=== PATIENT | male | born 1975 | race Caucasian/White ===

== ENCOUNTER 2019-08-18 13:02 | Emergency (ER) | payer OTHER, SELFPAY ==
[2019-08-18 13:07] VITALS: BP 138/85; PULSE 90; RESP 16; TEMP 37.1; O2SAT 98
--- NOTE | 2019-08-18 13:27 | ED.SKABFB ---
HPI - Skin/Abscess/Foreign Bdy General Chief complaint: Skin/Abscess/Foreign Body Stated complaint: rash on body Time Seen by Provider: 08/18/19 13:23 Source: patient Mode of arrival: ambulatory Limitations: no limitations History of Present Illness HPI narrative: A 44 y/o male pt presents to the ED, with c/o a rash to his back, ABD, and upper and lower extremities that began last (5 days ago). Pt states that the rash originally started on his back and has spread to his ABD and upper and lower extremities. He reports that the rash is itchy and painful. Pt notes having a fever of 101.7F last night, but denies taking any medications and states that the fever was gone when he woke up. Pt reports chills, but denies sore throat or rhinorrhea. He states that cold therapy helps his itching and pain and denies any changes in his diet or environment that may have caused the rash. Pt denies taking any Benedryl and denies having any contacts with a similar rash. He reports taking Lisinopril and notes a PMHx of Plaque psoriasis. Pt notes an allergy to Valsartan. complaint: rash Onset (ago): day(s) Location: generalized (back, ABD, upper and lower extremities) Quality: pruritic Pain Consistency: constant Relieving factors: cold therapy Associated symptoms: fever (101.7 last night, now resolved) and chills (now resolved) Related Data Allergies Allergy/AdvReac Type Severity Reaction Status Date / Time valsartan AdvReac Mild facial Verified 08/18/19 13:12 flushing, visual changes Review of Systems Review of Systems: All systems reviewed & are unremarkable except as noted in HPI and below Constitutional: Constitutional: Reports chills (now resolved) and Reports fever(s) (101.7F last night, now resolved) ENT: Denies sore throat and Denies other (rhinorrhea) Integumentary/Breasts: Skin/Breast: Reports pruritus (to rash) and Reports rash (back, ABD, upper and lower extremities) PMFSH Past Medical History Medical History (Updated 08/18/19 @ 15:20 by Caitlyn Frey MD) Essential (primary) hypertension IFG (impaired fasting glucose) Mixed hyperlipidemia Plaque psoriasis Surgical History Surgical History Status post vasectomy Social History Social History Smoking packs per day: 0.5 Smoking cigarettes per day: 10.0 Years smoked: 6 Smoking pack-years: 3.00 Smoking status: Former smoker Tobacco type: cigarettes Second hand tobacco smoke exposure: No Smoking end date: 05/13/97 Alcohol intake: never Substance use: never Substance use type: does not use Gender identity (if verbalized by the patient): Male Exam Narrative: Exam Narrative: GENERAL: Well-appearing, well-nourished, and in no acute distress. HEAD: Normocephalic, atraumatic EYES: PERRLA and EOMI, conjunctiva clear without discharge THROAT:Mucous membranes moist, Oropharynx normal without erythema, exudate, peritonsillar swelling or fluctuance NECK: Supple, without lymphadenopathy or mass RESPIRATORY: No respiratory distress, Airway patent, Respirations non-labored, Clear to auscultation without rales, rhonchi or wheeze HEART: Regular rate and rhythm. No murmur heard. Normal peripheral pulses. ABDOMEN: Soft, nontender, nondistended, normal active bowel sounds. No masses. No rebound or guarding, No organomegaly. EXTREMITIES: No edema, normal strength with full range of motion. NEURO: Alert and oriented x3. CN 2-12 grossly intact. No focal deficits. PSYCH: Normal mood and affect. Skin: Rashes: rashes noted (rash to back, abdomen and extremities; palm sparing, blanching, macuopapula) and other (erythema) Course Course Emergency Course: Patient presents with rash . He states he had fever last night that resolved spontaneously and he is afebrile here. I discussed with patient that rash likely viral rash juan alberto
[2019-08-18] MEDS: methylPREDNISolone SOD SUCC 125 MG VIAL IV PUSH (13:44)
[2019-08-18] MEDS: FAMOTIDINE 20 MG/2 ML VIAL IV PUSH (13:44)
[2019-08-18 13:54] VITALS: BP 121/73; PULSE 79; RESP 19; O2SAT 99
[2019-08-18 15:32] VITALS: BP 118/75; PULSE 78; RESP 16; O2SAT 100
== END 2019-08-18 15:33 | disposition home or self-care (01) ==
PROVIDERS: Emergency Provider General Practice; PCP Family Medicine
DX: R21 Rash and other nonspecific skin eruption (principal); F17.210 Nicotine dependence, cigarettes, uncomplicated; I10 Essential (primary) hypertension; E78.2 Mixed hyperlipidemia; L40.0 Psoriasis vulgaris
CPT/HCPCS: 87081; 87880; 96374; 96375; 99284; J1200; J2930

== ENCOUNTER 2019-08-26 08:54 | Outpatient (CLI) | payer OTHER, SELFPAY ==
[2019-08-24 15:40] LABS: Basophils Absolute Auto 0.1 K/mm3 (0.0-0.1); Basophils Percent Auto 1.2 % (0.2-1.2); Eosinophils Absolute Auto 0.4 K/mm3 (0-0.3); Eosinophils Percent Auto 6.5 % (0-4.4); Hematocrit 39.3 % (42.0-52.0); Hemoglobin 13.7 g/dL (14.0-18.0); Lymphocytes Absolute Auto 1.52 K/mm3 (0.9-3.2); Lymphocytes Percent Auto 23.1 % (18.3-44.2); Mean Corpuscular HGB Conc 34.9 g/dl (32-36); Mean Corpuscular Hemoglobin 31.8 pg (26-34); Mean Corpuscular Volume 91.2 fl (80-100); Mean Platelet Volume 8.3 fl (7.4-10.4); Monocytes Absolute Auto 0.8 K/mm3 (0.1-0.6); Neutrophils Absolute Auto 3.6 K/mm3 (1.3-6.7); Neutrophils Percent Auto 54.2 % (45.5-73.1); Platelet Count Result 299 k/mm3 (150-375); Red Blood Count 4.31 M/mm3 (4.6-6.20); Red Cell Distribution Width 12.5 % (11.5-14.5); White Blood Count 6.6 K/mm3 (4.5-10.0)
[2019-08-24 15:57] LABS: Alanine Aminotransferase 54 U/L (4-50); Albumin Level 4.2 g/dL (3.5-5.1); Alkaline Phosphatase 92 U/L (38-126); Aspartate Amino Transferase 59 U/L (17-59); Bilirubin,Total 0.4 mg/dL (0.2-1.3); Blood Urea Nitrogen 18 mg/dL (9-20); Carbon Dioxide 27 mmol/L (22-30); Chloride 104 mmol/L (98-107); Estimated Glomerular Filt Rate > 60; Glucose 133 mg/dL (75-110); Potassium 3.8 mmol/L (3.4-5.0); Sodium 140 mmol/L (137-145)
[2019-08-24 15:59] LABS: Rheumatoid Factor < 8.6 IU/ML (<12)
[2019-08-24 19:08] LABS: Hepatitis B Surface Antigen Negative (Negative)
[2019-08-24 19:13] LABS: HAV RESULT Negative (Negative); Hepatitis B Core IgM Result Negative (Negative)
[2019-08-24 19:25] LABS: Hepatitis C Virus Antibody Negative (Negative)
[2019-08-28 14:15] LABS: EBV Nuclear Ab Antibody >600.00 U/mL (<18.00); EBV Nuclear Ab Interpretation Past; EBV Virus Capsid Ag IgM Ab <36.00 U/mL (<36.00)
== END 2019-08-26 08:55 | disposition home or self-care (01) ==
PROVIDERS: PCP Family Medicine; Visit Provider Physician Assistant
DX: R21 Rash and other nonspecific skin eruption (principal); R50.9 Fever, unspecified; M25.50 Pain in unspecified joint; K74.60 Unspecified cirrhosis of liver
CPT/HCPCS: 36415; 80053; 80074; 85025; 86038; 86060; 86430; 86664; 86665

== ENCOUNTER 2020-01-21 08:05 | Emergency (ER) | payer OTHER, SELFPAY ==
[2020-01-21 08:12] VITALS: BP 150/87; PULSE 78; RESP 16; TEMP 36.9; O2SAT 98
--- NOTE | 2020-01-21 08:30 | ED.WOUNDLAC ---
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 Patient denies any pain. Denies active bleeding. He is not up-to-date on his tetanus. No difficulty or pain with movement. He denies any numbness. Patient states he was sent here for medical clearance by his employer. Patient is right-hand dominant. Related Data Allergies Allergy/AdvReac Type Severity Reaction Status Date / Time valsartan AdvReac Severe facial Verified 01/21/20 08:17 flushing, visual changes Review of Systems Review of Systems: Narrative: CONSTITUTIONAL: Denies fever CARDIOVASCULAR: Denies chest pain RESPIRATORY: Denies cough or dyspnea. GASTROINTESTINAL: Denies abdominal pain SKIN: Denies rash, reports laceration to left thumb MUSCULOSKELETAL: Denies back pain NEUROLOGIC: Denies headache PMFSH Past Medical History Medical History Essential (primary) hypertension Fever IFG (impaired fasting glucose) Joint pain Joint swelling Mixed hyperlipidemia Plaque psoriasis Rash Surgical History Surgical History Status post vasectomy Social History Social History Smoking packs per day: 0.5 Smoking cigarettes per day: 10.0 Years smoked: 6 Smoking pack-years: 3.00 Smoking status: Former smoker Tobacco type: cigarettes Second hand tobacco smoke exposure: No Smoking end date: 05/13/97 Alcohol intake: never Substance use: never Substance use type: does not use Gender identity (if verbalized by the patient): Male Exam Narrative: Exam Narrative: GENERAL: Awake, alert, conversant HEAD: Normocephalic, atraumatic. EYES: PERRLA and EOMI. ENT: Nares clear, no rhinorrhea or epistaxis. Mucous membranes moist. NECK: Supple. CHEST: No respiratory distress, breathing even and non labored HEART: Regular rate, sinus rhythm ABDOMEN:Non distended, non tender EXTREMITIES: Normal range of motion. No edema. SKIN: Warm, dry, no rash. 1 cm superficial laceration to the anterior aspect of the right thumb, not overlying the PIP or DIP. Capillary refill less than 3 seconds. Radial pulse 2+. Intact sensation, median, ulnar, radial nerve distribution. No pain with palpation of the DIP or PIP. No gross deformity. NEURO:No focal deficits. Alert and oriented x3 Course Vital Signs Vital signs: Vital Signs Temperature 36.9 C 01/21/20 08:12 Pulse Rate 78 01/21/20 08:12 Respiratory Rate 16 01/21/20 08:12 Blood Pressure 150/87 H 01/21/20 08:12 Pulse Oximetry 98 01/21/20 08:12 Temperature 36.9 C 01/21/20 08:12 Pulse Rate 78 01/21/20 08:12 Respiratory Rate 16 01/21/20 08:12 Blood Pressure 150/87 H 01/21/20 08:12 Pulse Oximetry 98 01/21/20 08:12 Procedures Laceration Laceration 1: Date: 01/21/20 Time: 08:33 Site: hand (left thumb) Side (If applicable): left Size (cm): 1 Description: linear Depth: simple, single layer Pre-repair: wound explored and irrigated ====== Skin Level ====== Skin layer closed with: dermabond ====== Subcutaneous Layer ====== ====== Muscle Layer ====== ====== Tendon Layer ====== MDM - Wound/Laceration MDM Narrative Medical decision making narrative: Patient with a superficial left thumb wound. No active bleeding. No gaping tissue. I do not even feel that this would benefit from sutures given how superficial it is. We can place some Dermabond for the patient. His te
[2020-01-21] MEDS: TETANUS,DIPHTHERIA,AC PERTUSSIS ADULT (0.5 ML) BOOSTRIX IM (08:47)
[2020-01-21 09:20] VITALS: BP 122/76; PULSE 78; RESP 17; O2SAT 98
== END 2020-01-21 09:21 | disposition home or self-care (01) ==
PROVIDERS: Emergency Provider Emergency Medicine; PCP Family Medicine
DX: S61.012A Laceration without foreign body of left thumb without damage to nail, initial encounter (principal); I10 Essential (primary) hypertension; E78.2 Mixed hyperlipidemia; Z87.891 Personal history of nicotine dependence; Z23 Encounter for immunization; W27.0XXA Contact with workbench tool, initial encounter
CPT/HCPCS: 12001; 90471; 90715; 99282

== ENCOUNTER 2022-04-21 16:17 | Emergency (ER) | payer OTHER, SELFPAY ==
[2022-04-21 17:03] VITALS: BP 144/86; PULSE 70; RESP 16; TEMP 36.9; O2SAT 98
[2022-04-21 17:16] VITALS: BP 144/86; PULSE 70; RESP 16; TEMP 36.9; O2SAT 98
--- NOTE | 2022-04-21 18:52 | ED.UPPEXIN ---
HPI - Extremity Injury (Upper) General Chief Complaint: Extremity Injury, Upper Stated Complaint: Right Shoulder Pain Time Seen by Provider: 04/21/22 18:52 Source: patient, RN notes reviewed and old records reviewed Mode of arrival: ambulatory Limitations: no limitations History of Present Illness HPI narrative: 46 year old male accompanied by spouse with complaints of right scapular pain radiating to right shoulder and neck and right clavicle area with increased pain with deep breathing starting today, Patient denies any known injury. Patient denies any recent cough or cold symptoms, no fevers, chills or sweats. Patient reports that he has had COVID vaccinations but no flu shot.Strong pulses to his right arm, no obvious deformity noted, states increased pain with movement, ROM intact. MD complaint: injury to: right Onset (ago): hour(s) (started today) Treatments prior to arrival: other (none) Related Data Allergies Allergy/AdvReac Type Severity Reaction Status Date / Time valsartan AdvReac Severe facial Verified 04/21/22 17:15 flushing, visual changes Review of Systems Review of Systems: CONSTITUTIONAL: Denies fever, chills, or sweats. EYES: Denies visual changes, redness, or discharge. ENT: Denies rhinorrhea, congestion, sore throat, or otalgia. CARDIOVASCULAR: Denies chest pain, palpitations, or edema. RESPIRATORY: Denies cough or dyspnea. GASTROINTESTINAL: Denies abdominal pain, nausea, vomiting, or diarrhea. GENITOURINARY: Denies dysuria or hematuria. SKIN: Denies rash or itching. MUSCULOSKELETAL: Denies back pain, positive for right scapula pain radiating to right shoulder neck and right clavicle area, or myalgia. NEUROLOGIC: Denies headache, numbness, or weakness. PSYCHIATRIC: Denies anxiety or depression. All systems reviewed & are unremarkable except as noted in HPI and below PMFSH Past Medical History Medical History (Updated 04/22/22 @ 00:00 by Pj Jeronimo) Essential (primary) hypertension Fever IFG (impaired fasting glucose) Joint pain Joint swelling Mixed hyperlipidemia Plaque psoriasis Rash Surgical History Surgical History Status post vasectomy Family History Family History Mother Diabetes mellitus Cerebrovascular accident Social History Social History Smoking packs per day: 0.5 Smoking cigarettes per day: 10.0 Years smoked: 6 Smoking pack-years: 3.00 Smoking status: Former smoker Tobacco type: cigarettes Second hand tobacco smoke exposure: No Smoking end date: 05/13/97 Alcohol intake: former Alcohol use details: Stopped a year ago due to B/P. Substance use: never Substance use type: does not use Gender identity (if verbalized by the patient): Male Comments At time of signature, agree with nursing past medical, surgical, social and family history. There is no relevant family history pertinent to the presenting complaint Exam Narrative: GENERAL: Well-appearing, well-nourished, and in no acute distress. HEAD: Normocephalic, atraumatic. EYES: PERRLA and EOMI. ENT: Nares clear, no rhinorrhea or epistaxis. Mucous membranes moist. NECK: Supple.no lymphadenopathy some right sided neck pain CHEST: Clear to auscultation. No respiratory distress.SAO2 98% on room air reports increased pain with deep inspiration HEART: Regular rate and rhythm. No murmur heard. Normal peripheral pulses. ABDOMEN: Soft, nontender, nondistended, normal active bowel sounds. EXTREMITIES: Normal range of motion. No edema. SKIN: Warm, dry, no rash. NEURO: No focal deficits. Alert and oriented x3. Course Course Emergency Course: Patient is aware of diagnosis, understands and agrees to treatment plan.? Anticipatory guidance given.? Patient agrees to follow-up as directed and is aware of reasons to seek care at the emerg
== END 2022-04-21 19:10 | disposition home or self-care (01) ==
PROVIDERS: Emergency Provider Registered Nurse; PCP Family Medicine
DX: M25.511 Pain in right shoulder (principal); Z87.891 Personal history of nicotine dependence; I10 Essential (primary) hypertension; R73.02 Impaired glucose tolerance (oral); E78.2 Mixed hyperlipidemia; L40.0 Psoriasis vulgaris
CPT/HCPCS: 99213; G0463

== ENCOUNTER 2022-05-18 04:35 | Emergency (ER) | payer OTHER, SELFPAY ==
--- NOTE | ~2022-05-18 | XR_ITS ---
Right Shoulder Technique: AP and scapular Y views were obtained. Clinical History: Pain Findings: No fracture or dislocation is seen. Osseous alignment is anatomic. The glenohumeral and acr omioclavicular joint spaces are preserved. Soft tissues are unremarkable. Impression: Unremarkable right shoulder radiographs. Reviewed, dictated and finalized at [facility]. [employer] ACCOUNT REPRESENTATIVE Impression: Unremarkable right shoulder radiographs.
[2022-05-18 04:39] VITALS: BP 140/91; PULSE 74; RESP 20; TEMP 36.6; O2SAT 99
--- NOTE | 2022-05-18 05:53 | ED.UPPEXIN ---
HPI - Extremity Injury (Upper) General Chief Complaint: Extremity Injury, Upper Stated Complaint: shoulder pain Time Seen by Provider: 05/18/22 05:24 History of Present Illness HPI narrative: This is a 47-year-old male with past medical history of hypertension, who presents to the emergency department complaining of right arm and back pain. The patient states he was seen previously at an outside facility for scapular pain but was not sure of his diagnosis. Today he states while taking his medications, he had sharp mid back pain radiating to the right arm. He rated the pain initially a 6 out of 10 and is now 4 out of 10 after taking ibuprofen. The pain is worse with movement of the arm. He denies trauma, nausea, vomiting or difficulty breathing. Related Data Allergies Allergy/AdvReac Type Severity Reaction Status Date / Time valsartan AdvReac Severe facial Verified 04/21/22 17:15 flushing, visual changes Review of Systems Review of Systems: CONSTITUTIONAL: Denies fever, chills, or sweats. CARDIOVASCULAR: Denies chest pain, palpitations, or edema. RESPIRATORY: Denies cough or dyspnea. GASTROINTESTINAL: Denies abdominal pain, nausea, vomiting, or diarrhea. GENITOURINARY: Denies dysuria or hematuria. SKIN: Denies rash or itching. MUSCULOSKELETAL: Right shoulder and arm pain, denies back pain, or myalgia. NEUROLOGIC: Denies headache, numbness, dizziness, or weakness. PSYCHIATRIC: Denies anxiety or depression. REPLACED BY [facility] Past Medical History Medical History (Updated 05/18/22 @ 06:35 by Flynn Ellis MD) Essential (primary) hypertension Fever IFG (impaired fasting glucose) Joint pain Joint swelling Mixed hyperlipidemia Plaque psoriasis Rash Surgical History Surgical History Status post vasectomy Family History Family History Mother Diabetes mellitus Cerebrovascular accident Social History Social History Smoking packs per day: 0.5 Smoking cigarettes per day: 10.0 Years smoked: 6 Smoking pack-years: 3.00 Smoking status: Former smoker Tobacco type: cigarettes Second hand tobacco smoke exposure: No Smoking end date: 05/13/97 Alcohol intake: former Alcohol use details: Stopped a year ago due to B/P. Substance use: never Substance use type: does not use Gender identity (if verbalized by the patient): Male Exam Narrative: GENERAL: Well-developed, well-nourished, and in no acute distress. HEAD: Normocephalic, atraumatic. EYES: PERRLA and EOMI. NECK: Supple. No adenopathy or masses. No carotid bruits or JVD CHEST: Clear to auscultation. No respiratory distress. No wheezes rales or rhonchi HEART: Regular rate and rhythm. No murmur heard. Normal peripheral pulses. ABDOMEN: Soft, nontender, nondistended, normal active bowel sounds. BACK: Tender to palpation along the medial border of the right scapula with muscle spasm, no noted rash, crepitus or step-off. No midline spine tenderness to palpation EXTREMITIES: Slightly limited anterior flexion of the right arm at 170 degrees compared to the left due to pain; range of motion otherwise intact; no edema. SKIN: Warm, dry, no rash. NEURO: No focal deficits. Alert and oriented x3. PSYCH: Normal mood and affect. Course Course Emergency Course: 06:32 -x-ray of the shoulder not concerning for fracture or dislocation. I suspect muscle spasm of the rhomboids as the cause of his pain. Discussed treatment options including RICE therapy. Discussed return and emergent precautions including signs/symptoms of neurovascular compromise and infection. The patient voiced understanding and is comfortable with the plan. All questions answered to his satisfaction. Vital Signs Vital signs: Vital Signs Temperature 97.8 F 05/18/22 04:39 Pulse Rate 74 05/18/22 04:39 Res
--- NOTE | 2022-05-18 06:27 | PC.NURSE ---
Pt reports right shoulder pain that reoccurred this morning while he was getting ready for work. He had this same pain one month ago and was evaluated/treated and it resolved. ROM is intact. Radial pulse palpable and strong. No known injury reported. Skin warm, pink, and dry.
[2022-05-18 06:47] VITALS: BP 135/77; PULSE 80; RESP 20; O2SAT 98
== END 2022-05-18 06:47 | disposition home or self-care (01) ==
PROVIDERS: Emergency Provider Preventive Medicine Aerospace Medicine; PCP Family Medicine
DX: S29.012A Strain of muscle and tendon of back wall of thorax, initial encounter (principal); I10 Essential (primary) hypertension; E78.2 Mixed hyperlipidemia; L40.0 Psoriasis vulgaris; Z87.891 Personal history of nicotine dependence; X58.XXXA Exposure to other specified factors, initial encounter
CPT/HCPCS: 73030; 99283

== ENCOUNTER 2022-07-06 22:37 | Emergency (ER) | payer OTHER, SELFPAY ==
--- NOTE | ~2022-07-06 | XR_ITS ---
XR chest 2V DATE: 07/07/2022 01:55 INDICATION: Cough TECHNIQUE: PA and lateral views COMPARISON: None FINDINGS: Heart size is within normal range. No hilar or mediastinal enlargement. No pulmonary infilt rate or consolidation, pleural effusion or pulmonary vascular congestion or pneumothorax is detected. IMPRESSION: No active cardiopulmonary disease Reviewed, dictated and finalized at location A. PT WRITER
[2022-07-06 22:51] VITALS: BP 132/79; PULSE 73; RESP 20; TEMP 37.1; O2SAT 96
--- NOTE | 2022-07-07 01:14 | ED.URI ---
HPI - URI/Sore Throat General Chief Complaint: Upper Respiratory Infection Stated Complaint: sore throat Time Seen by Provider: 07/07/22 01:05 History of Present Illness HPI Narrative: 47-year-old male with history of hypertension and hyperlipidemia reports for productive cough, congestion, sore throat x4 days. Pt states his throat is a sharp pain that hurts worse with swallowing. Reports his cough is productive with yellow sputum. Denies fever, body aches, chills, headache, abdominal pain, urinary complaints, chest pain, shortness of breath, back pain, neck pain. He reports an intermittent headache that he attributes to sinus pressure. He denies current smoking. He has been taking ibuprofen with some relief. Last dose of ibuprofen 6 hours ago. Related Data Home Medications Medication Instructions Recorded Confirmed famotidine 20 mg tablet 20 mg PO DAILY 07/05/22 Allergies Allergy/AdvReac Type Severity Reaction Status Date / Time valsartan AdvReac Severe facial Verified 07/06/22 22:59 flushing, visual changes Review of Systems Review of Systems: CONSTITUTIONAL: Denies fever, chills EYES: Denies visual changes, redness, or discharge. ENT: See HPI CARDIOVASCULAR: Denies chest pain, palpitations, or edema. RESPIRATORY: See HPI GASTROINTESTINAL: Denies abdominal pain, nausea, vomiting, or diarrhea. GENITOURINARY: Denies dysuria or hematuria. SKIN: Denies rash or itching. MUSCULOSKELETAL: Denies back pain, joint pain, or myalgia. NEUROLOGIC: Denies headache, numbness, dizziness, or weakness. PSYCHIATRIC: Denies anxiety or depression. [facility] Past Medical History Medical History PRIYA positive Essential (primary) hypertension Fever IFG (impaired fasting glucose) Joint pain Joint swelling Mixed hyperlipidemia Plaque psoriasis Rash Scalp psoriasis Transaminitis Surgical History Surgical History Status post vasectomy Family History Family History Mother Diabetes mellitus Cerebrovascular accident Social History Social History Smoking packs per day: 0.5 Smoking cigarettes per day: 10.0 Years smoked: 6 Smoking pack-years: 3.00 Smoking status: Former smoker Tobacco type: cigarettes Second hand tobacco smoke exposure: No Smoking end date: 05/13/97 Alcohol intake: former Alcohol use details: Stopped a year ago due to B/P. Substance use: never Substance use type: does not use Living arrangements: with family Occupation/Education: occupation Gender identity (if verbalized by the patient): Male Exam Narrative: GENERAL: Well-appearing, well-nourished, and in no acute distress. HEAD: Normocephalic, atraumatic. EYES: PERRLA and EOMI. ENT: Nares clear, no rhinorrhea or epistaxis. Nasal mucosa congested. Mucous membranes moist. Oropharynx without tonsillar hypertrophy exudate or other lesions. Posterior pharynx erythematous. Bilateral TMs injected with middle ear effusion, no bulging, light reflex is present. NECK: Supple. No adenopathy or masses. CHEST: No respiratory distress. Rhonchi present throughout all lung brooks. Crackles heard in R lower lobe. HEART: Regular rate and rhythm. No murmur heard. Normal peripheral pulses. ABDOMEN: Soft, nontender, nondistended, normal active bowel sounds. EXTREMITIES: Normal range of motion. No edema. SKIN: Warm, dry, no rash. NEURO: No focal deficits. Alert and oriented x3. PSYCH: Normal mood and affect. Course Vital Signs Vital signs: Vital Signs Temperature 98.8 F 07/06/22 22:51 Pulse Rate 73 07/06/22 22:51 Respiratory Rate 20 07/06/22 22:51 Blood Pressure 132/79 07/06/22 22:51 Pulse Oximetry 96 07/06/22 22:51 Oxygen Delivery Room Air 07/06/22 22:51 Temperature 98.
[2022-07-07] MEDS: ALBUTEROL SULFATE NEB 2.5 MG/3 ML INH INHALATION (01:28)
[2022-07-07] MEDS: IPRATROPIUM BR 0.02% INH SOLN 0.5 MG/2.5 ML VIAL INHALATION (01:28)
[2022-07-07 01:31] VITALS: PULSE 78; RESP 16
[2022-07-07 01:51] LABS: Strep Group A RT-PCR NOT DETECTED (Negative)
[2022-07-07 02:04] LABS: Influenza A QL RT-PCR Negative (Negative); Influenza B QL RT-PCR Negative (Negative); SARS-CoV-2 RNA PCR Negative
[2022-07-07 02:45] VITALS: BP 144/75; PULSE 76; RESP 18; O2SAT 97
== END 2022-07-07 02:40 | disposition home or self-care (01) ==
PROVIDERS: Emergency Provider Physician Assistant; PCP Family Medicine
DX: J18.9 Pneumonia, unspecified organism (principal); Z20.822 Contact with and (suspected) exposure to COVID-19; I10 Essential (primary) hypertension; E78.2 Mixed hyperlipidemia; Z87.891 Personal history of nicotine dependence
CPT/HCPCS: 71046; 87636; 87651; 94640; 99283